=== PATIENT | female | born 1945 | race Caucasian/White ===

== ENCOUNTER 2016-12-14 14:32 | Outpatient (CLI) | payer MEDICARE, OTHER ==
--- NOTE | 2016-12-15 16:50 | Mammography Report ---
DIGITAL SCREENING MAMMOGRAM: 12/14/2016 CLINICAL INDICATION: A 71-year-old for screening. COMPARISON: 12/2011, 11/2009 TECHNIQUE: Routine CC and MLO projections were obtained of the breasts as well as bilateral laterall y exaggerated craniocaudal views. FINDINGS: Parenchymal tissue within both breasts is heterogeneously dense, which may lower the sensi tivity of mammography; however, there are no dominant masses, suspicious microcalcifications, or seco ndary signs of malignancy. In comparison to the previous studies, there are no significant changes. ASSESSMENT: NO MAMMOGRAPHIC EVIDENCE OF MALIGNANCY. NO SIGNIFICANT INTERVAL CHANGES. RECOMMENDATION: Screening mammography is recommended annually. BIRADS category 1 - negative. STANDARD QUALIFYING STATEMENTS 1. This examination was reviewed with the aid of Computed-Aided Detection (CAD). 2. A negative or benign imaging report should not delay biopsy if clinically suspicious findings are present. Consider surgical consultation if warranted. More than 5% of cancers are not identified by i maging. 3. Dense breasts may obscure an underlying neoplasm. JOB #: [id number] EXT JOB #:[id number]
== END 2016-12-14 14:33 | disposition home or self-care (01) ==
LOC: DI.S 14:32
PROVIDERS: ATTEND Physician Assistant
DX: Z12.31 Encounter for screening mammogram for malignant neoplasm of breast (principal)
CPT/HCPCS: 77067

== ENCOUNTER 2017-10-07 10:59 | Emergency (ER) | payer MEDICARE, OTHER ==
[2017-10-07 11:30] LABS: BILIRUBIN,URINE NEGATIVE (NEGATIVE); GLUCOSE, URINE (UA) NEGATIVE (NEGATIVE); KETONES,URINE (UA) NEGATIVE (NEGATIVE); LEUKOCYTE ESTERASE, URINE NEGATIVE (NEGATIVE); NITRITE,URINE NEGATIVE (NEGATIVE); OCCULT BLOOD,URINE NEGATIVE (NEGATIVE); PROTEIN,URINE NEGATIVE (NEGATIVE); UROBILINOGEN,URINE 0.2 (NORMAL) E.U./dL (NORMAL)
[2017-10-07 11:32] LABS: CLARITY,URINE SL. CLOUDY (CLEAR)
[2017-10-07 11:35] LABS: AMORPHOUS SEDIMENT,UR Moderate /LPF; BACTERIA,URINE Moderate /HPF (None Seen); RBC,URINE 0-5 /HPF (0-5); SQUAMOUS EPITHELIAL CELL,UR RARE Squamous (<= Few)
[2017-10-07 11:43] LABS: BASOPHILS % (AUTO) 0.6 %; EOSINOPHILS # (AUTO) 0.1 10^3/uL (0.0-0.7); EOSINOPHILS % (AUTO) 1.5 %; LYMPHOCYTES # (AUTO) 1.6 10^3/uL (1.5-3.5); LYMPHOCYTES % (AUTO) 24.7 %; MEAN CORPUSCULAR HEMOGLOBIN 29.5 pg (27.0-31.0); MEAN CORPUSCULAR HGB CONC 33.4 g/dL (32.0-36.0); MEAN CORPUSCULAR VOLUME 88.3 fL (81.0-99.0); MEAN PLATELET VOLUME 6.6 fL (7.9-10.8); MONOCYTES # (AUTO) 0.6 10^3/uL (0.0-1.0); MONOCYTES % (AUTO) 8.9 %; NEUTROPHILS # (AUTO) 4.3 10^3/uL (1.5-6.6); NEUTROPHILS % (AUTO) 64.3 %; PLT - PLATELET COUNT 258 10^3/uL (130-450); RED BLOOD COUNT 4.74 10^6/uL (4.20-5.40); RED CELL DISTRIBUTION WIDTH 14.1 % (12.0-15.0); WHITE BLOOD COUNT 6.6 x10^3/uL (4.8-10.8)
[2017-10-07 11:54] LABS: ALBUMIN 4.1 g/dL (3.2-5.5); ALBUMIN/GLOBULIN RATIO 1.3 (1.0-2.2); BILIRUBIN,TOTAL 0.9 mg/dL (0.2-1.0); CALCIUM 9.5 mg/dL (8.5-10.3); CREATININE 0.9 mg/dL (0.4-1.0); TOTAL PROTEIN 7.2 g/dL (6.7-8.2)
[2017-10-07] MEDS ORDERED: MORPHINE 2 MG/ML SYRINGE IVP STA (12:32)
[2017-10-07] MEDS ORDERED: ONDANSETRON 4 MG/2 ML VIAL IVP STA (12:32)
[2017-10-07] MEDS ORDERED: SODIUM CHLORIDE 0.9% 1,000 ML IV ONE (12:32)
--- NOTE | 2017-10-07 12:35 | ED Physician Documentation ---
PD HPI ABD PAIN - Stated complaint Stated Complaint: NAUSEA/ABD PX - Chief complaint Chief Complaint: Abd Pain - History obtained from History obtained from: Patient - History of Present Illness Timing - onset: Other (71-year-old woman with 5 days of left lower quadrant pain initially associated with nausea and diarrhea but now constipated x about 4 days. She has no history of abdominal surgeries. She had a colonoscopy about 8 years ago but does not remember the results and a negative occult blood test this last winter. She has had chills but no fevers measured. She was sent by her physician to evaluate for potential diverticulitis.) Review of Systems Ten Systems: 10 systems reviewed and negative Constitutional: reports: Chills. denies: Fever Cardiac: denies: Chest pain / pressure, Palpitations Respiratory: denies: Dyspnea, Cough GI: reports: Abdominal Pain, Nausea, Vomiting, Constipation, Diarrhea. denies: Bloody / black stool PD PAST MEDICAL HISTORY - Past Medical History Cardiovascular: None, Other Respiratory: None Neuro: Peripheral neuropathy Endocrine/Autoimmune: None GI: Ulcers SPARE PERSON: None : None HEENT: None Psych: Depression, Anxiety, Post traumatic stress disorder Musculoskeletal: Other Derm: None Other Past Medical History: Stent in left groin - Past Surgical History Past Surgical History: Yes Ortho: Spine surgery - Present Medications Home Medications: Ambulatory Orders Medication Instructions Recorded Confirmed Atorvastatin [Lipitor] 40 mg PO QPM 01/23/14 01/23/14 Bupropion HCl [Bupropion Xl] 300 mg PO DAILY 01/23/14 01/23/14 DULoxetine [Cymbalta] 60 mg PO DAILY 01/23/14 01/23/14 Gabapentin 300 mg PO TID 01/23/14 01/23/14 Hydroxyzine HCl 25 mg PO QPM PRN 01/23/14 01/23/14 Lactobacillus Combo No.10 1 tab PO BID 01/23/14 01/23/14 [Probiotic] Magnesium Oxide [Magnesium] 400 mg PO DAILY 01/23/14 01/23/14 Multivitamin [Multivitamins] 1 tab PO DAILY 01/23/14 01/23/14 Omeprazole [Prilosec] 20 mg PO DAILY 01/23/14 01/23/14 Ondansetron [Zofran] 4 mg PO Q4H PRN 09/16/14 09/16/14 Oxycodone HCl/Acetaminophen 1 tab PO Q4H PRN 01/23/14 01/23/14 [Percocet 10-325 mg Tablet] Amox/Clav 875/125 [Augmentin] 1 each PO Q12H #14 tablet 10/07/17 Polyethylene Glycol 3350 [Miralax] 17 gm PO DAILY PRN #1 bottle 10/07/17 - Allergies Allergies/Adverse Reactions: Allergies Allergy/AdvReac Type Severity Reaction Status Date / Time hydromorphone [Hydromorphone] Allergy Hallucinati Verified 10/07/17 11:04 ons - Social History Does the pt smoke?: No Smoking Status: Former smoker Does the pt drink ETOH?: No Does the pt have substance abuse?: No - Family History Family history: reports: Non contributory - Immunizations Immunizations are current?: Yes - POLST Patient has POLST: No PD ED PE NORMAL - Vitals Vital signs reviewed: Yes - General General: Alert and oriented X 3, No acute distress - HEENT HEENT: PERRL, EOMI - Neck Neck: Supple, no meningeal sign, No bony TTP, No bruit - Cardiac Cardiac: RRR, No murmur - Respiratory Respiratory: No respiratory distress, Clear bilaterally - Abdomen Abdomen: Other (Mild tenderness in the left lower quadrant without surgical signs, slightly hyperactive bowel tones.) - Back Back: No CVA TTP, No spinal TTP - Derm Derm: Normal color, Warm and dry - Extremities Extremities: No edema, No calf tenderness / cord - Neuro Neuro: Alert and oriented X 3, Normal speech Results - Vitals Vitals: Vital Signs - 24 hr 10/07/17 10/07/17 11:01 14:30 Temperature 35.9 C L Heart Rate 74 86 Respiratory 16 16 Rate Blood Pressure 141/89 H 156/86 H O2 Saturation 100 99 Oxygen O2 Source Room air - Labs Labs: Laboratory Tests 10/07/17 10/07/17 10/07/17 11:25 11:37 11:37 WBC 6.6 RBC 4.74 Hgb 14.0 Hct 41.8 MCV 88.3 MCH 29.5 MCHC 33.4 RDW 14.1 Plt Count 258 MPV 6.6 L Neut # 4.3 Lymph # 1.6 Webb # 0.6 Eos # 0.1 Baso # 0.0 Absolute Nucleated RBC 0.00 Nucleated RBC % 0.0 Sodium 134 L Potassium 3.9 Chloride 100 L Carbon Dioxide 25 Anion Gap 9.0 BUN 17 Creatinine 0.9 Estimated GFR (MDRD) 62 L Glucose 110 H Calcium 9.5 Total Bilirubin 0.9 AST 21 ALT 19 Alkaline Phosphatase 80 Total Protein 7.2 Albumin 4.1 Globulin 3.1 Albumin/Globulin Ratio 1.3 Lipase 25 Urine Color YELLOW Urine Clarity SL. CLOUDY Urine pH 7.0 Ur Specific [place] 1.015 Urine Protein NEGATIVE Urine Glucose (UA) NEGATIVE Urine Ketones NEGATIVE Urine Occult Blood NEGATIVE Urine Nitrite NEGATIVE Urine Bilirubin NEGATIVE Urine Urobilinogen 0.2 (NORMAL) Ur Leukocyte Esterase NEGATIVE Urine RBC 0-5 Urine WBC 0-3 Ur Squamous Epith Cells RARE Squamous Amorphous Sediment Moderate Urine Bacteria Moderate H Ur Microscopic Review INDICATED Urine Culture Comments INDICATED - Rads (name of study) CT A/P Radiology: EMP read contemporaneously (Lots of back pathology. Significant diverticulosis, no clear itis. Hiatal hernia.) PD MEDICAL DECISION MAKING - ED course ED course: History of physical is consistent with mild diverticulitis. No clear evidence of diverticulitis on CT, but suspect a mild case of that given her clinical picture. No other significant pathology except for chronic back issues and a hiatal hernia seen on CT and her labs were unremarkable. Departure - Departure Disposition: 01 Home, Self Care Clinical Impression: Diverticulitis of gastrointestinal tract Condition: Good Record reviewed to determine appropriate education?: Yes Instructions: ED Diverticulitis Prescriptions: Amox/Clav 875/125 [Augmentin] 1 each PO Q12H #14 tablet Polyethylene Glycol 3350 [Miralax] 17 gm PO DAILY PRN #1 bottle PRN Reason: Constipation Comments: Follow up with S[facility] next week. You should have a colonoscopy in the next couple of months. Return if worse. Discharge Date/Time: 10/07/17 14:31
[2017-10-07] MEDS ORDERED: IOPAMIDOL-300 100 ML VIAL ONE (12:51)
--- NOTE | 2017-10-07 14:07 | CT Preliminary Report ---
Exam: CT ABDOMEN/PELVIS W/ IMPRESSION: 1. Chronic lung disease. 2. Moderate hiatal hernia. 3. Extensive sigmoid diverticulosis without evidence of diverticulitis. [facility] SITE ID: [id number]
--- NOTE | 2017-10-07 14:10 | CT Report ---
EXAM: CT ABDOMEN AND PELVIS EXAM DATE: 10/07/2017 01:04 PM. CLINICAL HISTORY: Left lower quadrant pain. COMPARISONS: 01/23/2014. TECHNIQUE: Routine helical CT imaging was performed through the abdomen and pelvis. IV contrast: 100 mL Isovue-300. Enteric contrast: No. Reconstructions: Coronal and sagittal. In accordance with CT protocol optimization, one or more of the following dose reduction techniques w ere utilized for this exam: automated exposure control, adjustment of mA and/or KV based on patient s ize, or use of iterative reconstructive technique. FINDINGS: Lung Bases: Emphysematous changes. Increasing hiatal hernia, now moderate in caliber. Liver: Normal. No masses. Gallbladder/Bile Ducts: Unremarkable. Spleen: Normal. Pancreas: Normal. Adrenal Glands: Normal. Kidneys: Normal. No masses or hydronephrosis. Peritoneal Cavity/Bowel: Numerous diverticuli off the colon, greatest within the sigmoid. No free flu id, free air or adenopathy. No masses or acute inflammatory process. Appendix not visualized but no inflammatory changes adjacent to cecum. Pelvic Organs: Normal. The bladder and visualized pelvic organs are within normal limits. Vasculature: No aneurysms or other significant abnormality. Bones: Further interval mature compression of T10, now moderate in degree. Interval moderate to marked wedging at L1, mature, with moderate central spinal canal stenosis at T12 -L1 due to a retropulsed bone fragment. Progression of marked degenerative disk disease at L2-L3. Acquired interbody fusion at L4-L5 unchanged. Progression of marked degenerative disk disease at L5-S1. Remote left symphysis pubis fracture. Other: None. IMPRESSION: 1. Chronic lung disease. 2. Moderate hiatal hernia. 3. Extensive sigmoid diverticulosis without evidence of diverticulitis. [facility] Referring Provider Line: [phone] SITE ID: [id number]
[2017-10-07] MEDS ORDERED: IOPAMIDOL-300 100 ML VIAL IVP ONE (14:28)
[2017-10-07 14:31] VITALS: BP 156/86
== END 2017-10-07 14:31 | disposition home or self-care (01) ==
LOC: ED 10:59
DX: K57.32 Diverticulitis of large intestine without perforation or abscess without bleeding (principal); K44.9 Diaphragmatic hernia without obstruction or gangrene; G62.9 Polyneuropathy, unspecified; Z87.11 Personal history of peptic ulcer disease; Z87.891 Personal history of nicotine dependence
CPT/HCPCS: 36415; 74177; 80053; 81001; 83690; 85025; 87086; 96361; 96374; 99284; J2270; Q9967; 81003

== ENCOUNTER 2017-12-06 10:50 | Day surgery (SDC) | payer MEDICARE, OTHER ==
[2017-12-06] MEDS ORDERED: LACTATED RINGERS 1,000 ML IV ONE ×4 (11:10→12:30)
[2017-12-06] MEDS ORDERED: fentaNYL 250 MCG/5 ML VIAL IVP ONE (12:00)
[2017-12-06] MEDS ORDERED: MIDAZOLAM 2 MG/2 ML VIAL IVP ONE (12:00)
[2017-12-06 13:34] VITALS: BP 111/87
== END 2017-12-06 10:51 | disposition home or self-care (01) ==
LOC: SDS 10:50
PROVIDERS: ATTEND Surgery
PROC: 0DJD8ZZ Inspection of Lower Intestinal Tract, Via Natural or Artificial Opening Endoscopic (ICD-10-PCS; principal; 2017-12-06 12:15)
DX: Z12.11 Encounter for screening for malignant neoplasm of colon (principal); K62.1 Rectal polyp; K57.30 Diverticulosis of large intestine without perforation or abscess without bleeding; K64.8 Other hemorrhoids; Z87.891 Personal history of nicotine dependence; K21.9 Gastro-esophageal reflux disease without esophagitis
CPT/HCPCS: G0105; J3010; J7120

== ENCOUNTER 2020-11-05 08:00 | Outpatient (CLI) | payer MEDICARE, OTHER | END 2020-11-05 23:59 | disposition home or self-care (01) | LOC: LAB.S 08:00 | PROVIDERS: ATTEND Physician Assistant | DX: N39.0 Urinary tract infection, site not specified (principal) | CPT/HCPCS: 87077; 87086; 87181 ==

== ENCOUNTER 2021-08-20 14:45 | Outpatient (CLI) | payer MEDICARE, OTHER ==
[2021-08-20 20:14] LABS: BASOPHILS # (AUTO) 0.1 10^3/uL (0.0-0.1); BASOPHILS % (AUTO) 0.9 %; EOSINOPHILS # (AUTO) 0.5 10^3/uL (0.0-0.7); HCT - HEMATOCRIT 35.3 % (37.0-47.0); HGB - HEMOGLOBIN 11.6 g/dL (12.0-16.0); LYMPHOCYTES # (AUTO) 1.4 10^3/uL (1.5-3.5); LYMPHOCYTES % (AUTO) 16.1 %; MEAN CORPUSCULAR HEMOGLOBIN 27.3 pg (27.0-31.0); MEAN CORPUSCULAR HGB CONC 32.9 g/dL (32.0-36.0); MEAN CORPUSCULAR VOLUME 83.1 fL (81.0-99.0); MEAN PLATELET VOLUME 9.5 fL (7.9-10.8); MONOCYTES # (AUTO) 0.8 10^3/uL (0.0-1.0); MONOCYTES % (AUTO) 9.7 %; NEUTROPHILS # (AUTO) 5.8 10^3/uL (1.5-6.6); NEUTROPHILS % (AUTO) 66.2 %; PLT - PLATELET COUNT 404 10^3/uL (130-450); RED BLOOD COUNT 4.25 10^6/uL (4.20-5.40); RED CELL DISTRIBUTION WIDTH 14.8 % (12.0-15.0); WHITE BLOOD COUNT 8.7 x10^3/uL (4.8-10.8)
[2021-08-20 20:41] LABS: ALBUMIN 2.8 g/dL (3.2-5.5); ALBUMIN/GLOBULIN RATIO 0.7 (1.0-2.2); BILIRUBIN,TOTAL 0.8 mg/dL (0.2-1.0); CALCIUM 9.3 mg/dL (8.5-10.3); CREATININE 0.8 mg/dL (0.4-1.0); POTASSIUM 3.6 mmol/L (3.5-5.0); TOTAL PROTEIN 6.9 g/dL (6.7-8.2)
== END 2021-08-20 14:46 | disposition home or self-care (01) ==
LOC: LAB.S 14:45
DX: N20.0 Calculus of kidney (principal); C34.91 Malignant neoplasm of unspecified part of right bronchus or lung; N30.90 Cystitis, unspecified without hematuria; E55.9 Vitamin D deficiency, unspecified; N13.30 Unspecified hydronephrosis
CPT/HCPCS: 36415; 80053; 85025

== ENCOUNTER 2021-08-31 16:03 | Emergency (ER) | payer MEDICARE, OTHER ==
--- NOTE | 2021-08-31 16:23 | ED Physician Documentation ---
PD HPI ABD PAIN - Stated complaint Stated Complaint: ABD PX - Chief complaint Chief Complaint: Abd Pain - History obtained from History obtained from: Patient, Family - Additional information Additional information: 75-year-old woman presents by private vehicle with her . She has not had a good bowel movement in about 4 days and now has had 2 days of severe suprapubic pain. They have tried laxatives and enemas without output. She vomited a little bit today. No fevers. She is undergoing treatment for non- small cell lung cancer with radiation and chemotherapy. 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, Chronic bladder infection HEENT: Chronic vision loss Psych: Depression, Anxiety, Panic attacks, Post traumatic stress disorder, Claustrophobia Musculoskeletal: Osteoarthritis, Chronic back pain Derm: None - Past Surgical History Past Surgical History: Yes General: Colonoscopy, EGD Ortho: Spine surgery - Present Medications Home Medications: Ambulatory Orders Medication Instructions Recorded Confirmed Atorvastatin [Lipitor] 40 mg PO QPM 01/23/14 08/31/21 DULoxetine [Cymbalta] 60 mg PO DAILY 01/23/14 08/31/21 Lactobacillus Combo No.10 1 tab PO BID 01/23/14 08/31/21 [Probiotic] Omeprazole [Prilosec] 20 mg PO DAILY 01/23/14 08/31/21 Ondansetron [Zofran] 4 mg PO Q4H PRN 01/23/14 08/31/21 polyethylene glycoL 3350 [Miralax] 17 gm PO DAILY PRN #1 bottle 10/07/17 08/31/21 Amox/Clav 875/125 [Augmentin] 1 each PO TID #30 tablet 08/31/21 Meloxicam [Mobic] 7.5 mg PO BID PRN #10 tablet 08/31/21 polyethylene glycoL 3350 [Miralax] 17 gm PO DAILY PRN #1 bottle 08/31/21 - Allergies Allergies/Adverse Reactions: Allergies Allergy/AdvReac Type Severity Reaction Status Date / Time hydromorphone [Hydromorphone] Allergy Hallucinati Verified 08/31/21 16:10 ons - Social History Does the pt smoke?: No Smoking Status: Former smoker Does the pt drink ETOH?: No Does the pt have substance abuse?: No - Immunizations Immunizations are current?: Yes - POLST Patient has POLST: No PD ED PE NORMAL - Vitals Vital signs reviewed: Yes - General General: Alert and oriented X 3, No acute distress - Cardiac Cardiac: RRR, No murmur - Respiratory Respiratory: No respiratory distress, Clear bilaterally - Abdomen Abdomen: Other (Mild suprapubic tenderness without surgical signs, slightly hy peractive bowel tones. Soft without surgical signs.) - Rectal Rectal: Other (Rectal exam done with Tari LEWIS present and chaperoning. Empty rectal vault.) - Back Back: No CVA TTP, No spinal TTP - Derm Derm: Normal color, Warm and dry - Extremities Extremities: No edema, No calf tenderness / cord - Neuro Neuro: Alert and oriented X 3, Normal speech Results - Vitals Vitals: Vital Signs - 24 hr 08/31/21 08/31/21 16:06 18:10 Temperature 37.1 C Heart Rate 104 H 98 Respiratory 18 18 Rate Blood Pressure 100/67 138/92 H O2 Saturation 97 96 Oxygen O2 Source Room air - Labs Labs: Laboratory Tests 08/31/21 08/31/21 08/31/21 16:35 16:35 19:00 WBC 6.7 RBC 4.07 L Hgb 11.0 L Hct 33.9 L MCV 83.3 MCH 27.0 MCHC 32.4 RDW 15.5 H Plt Count 184 MPV 8.5 Neut # (Auto) 5.9 Lymph # (Auto) 0.4 L [place] # (Auto) 0.3 Eos # (Auto) 0.0 Baso # (Auto) 0.0 Absolute Nucleated RBC 0.00 Nucleated RBC % 0.0 Sodium 135 Potassium 3.7 Chloride 99 L Carbon Dioxide 24 Anion Gap 12.0 BUN 16 Creatinine 0.7 Estimated GFR (MDRD) 82 L Glucose 116 H Calcium 8.6 Total Bilirubin 0.8 AST 18 ALT 18 Alkaline Phosphatase 84 Total Protein 6.9 Albumin 3.1 L Globulin 3.8 Albumin/Globulin Ratio 0.8 L Lipase 22 Urine Color YELLOW Urine Clarity CLEAR Urine pH 7.0 Ur Specific [place] 1.010 Urine Protein NEGATIVE Urine Glucose (UA) NEGATIVE Urine Ketones TRACE Urine Occult Blood NEGATIVE Urine Nitrite NEGATIVE Urine Bilirubin NEGATIVE Urine Urobilinogen 0.2 (NORMAL) Ur Leukocyte Esterase NEGATIVE Ur Microscopic Review NOT INDICATED Urine Culture Comments NOT INDICATED PD MEDICAL DECISION MAKING - ED course ED course: This is a yogesh woman undergoing chemotherapy for cancer who presents with constipation and does not have a fecal impaction on exam. Subsequently had a CT showing: CT of the abdomen and pelvis with IV contrast demonstrates diverticulitis and fecal retention. Hiatal hernia. Pulmonary emphysema. Multilevel DDD and spinal stenosis She had some relief with Toradol here. Was given some laxatives and a first dose of Unasyn IV. Given the active chemotherapy I do believe this mandates treatment for her diverticulitis. She did not have a bowel movement in the ER but preferred to go home to have her bowel movements there. Departure - Departure Disposition: Home, Self Care Clinical Impression: Diverticulitis Constipation Qualifiers: Constipation type: slow transit constipation Qualified Code(s): K59.01 - Slow transit constipation Condition: Good Record reviewed to determine appropriate education?: Yes Instructions: ED Constipation, ED Diverticulitis Prescriptions: Amox/Clav 875/125 [Augmentin] 1 each PO TID #30 tablet polyethylene glycoL 3350 [Miralax] 17 gm PO DAILY PRN #1 bottle PRN Reason: Constipation Meloxicam [Mobic] 7.5 mg PO BID PRN #10 tablet PRN Reason: Pain Comments: We found today that you had diverticulitis which is an infection of the colon and were constipated. You did receive several doses of laxatives here. You should follow-up with your primary care physician and oncologist, next available appointment. Return if worsening. I sent your prescriptions electronically to [facility] in [place]. Prescriptions for something for pain as well as antibiotics for the diverticulitis and laxatives.
[2021-08-31 16:41] LABS: BASOPHILS % (AUTO) 0.3 %; EOSINOPHILS % (AUTO) 0.3 %; HCT - HEMATOCRIT 33.9 % (37.0-47.0); LYMPHOCYTES # (AUTO) 0.4 10^3/uL (1.5-3.5); LYMPHOCYTES % (AUTO) 6.4 %; MEAN CORPUSCULAR HGB CONC 32.4 g/dL (32.0-36.0); MEAN CORPUSCULAR VOLUME 83.3 fL (81.0-99.0); MEAN PLATELET VOLUME 8.5 fL (7.9-10.8); MONOCYTES # (AUTO) 0.3 10^3/uL (0.0-1.0); MONOCYTES % (AUTO) 4.7 %; NEUTROPHILS # (AUTO) 5.9 10^3/uL (1.5-6.6); NEUTROPHILS % (AUTO) 87.6 %; PLT - PLATELET COUNT 184 10^3/uL (130-450); RED BLOOD COUNT 4.07 10^6/uL (4.20-5.40); RED CELL DISTRIBUTION WIDTH 15.5 % (12.0-15.0); WHITE BLOOD COUNT 6.7 x10^3/uL (4.8-10.8)
[2021-08-31] MEDS: SODIUM CHLORIDE 0.9% 1,000 ML IV STA ×2 (16:42→18:09)
[2021-08-31 16:55] LABS: ALBUMIN 3.1 g/dL (3.2-5.5); ALBUMIN/GLOBULIN RATIO 0.8 (1.0-2.2); BILIRUBIN,TOTAL 0.8 mg/dL (0.2-1.0); CALCIUM 8.6 mg/dL (8.5-10.3); CREATININE 0.7 mg/dL (0.4-1.0); POTASSIUM 3.7 mmol/L (3.5-5.0); TOTAL PROTEIN 6.9 g/dL (6.7-8.2)
[2021-08-31] MEDS: KETOROLAC 15 MG/ML VIAL IVP STA ×2 (17:10→19:19)
[2021-08-31] MEDS ORDERED: IOVERSOL 320 50 ML VIAL ONE (17:20)
[2021-08-31] MEDS: IOVERSOL 320 50 ML VIAL IVP ONE (17:35)
--- NOTE | 2021-08-31 18:01 | CT Report ---
PROCEDURE: CT abdomen and pelvis with contrast INDICATIONS: Low abdominal pain CONTRAST: IV CONTRAST: Optiray 320 ml: 100 PO CONTRAST: *NO PO CONTRAST TECHNIQUE: After the administration of contrast, 5 mm thick sections acquired from the diaphragms to the sym physis. 5 mm thick coronal and sagittal reformats were acquired. For radiation dose reduction, the following was used: automated exposure control, adjustment of mA and/or kV according to patient size . COMPARISON: 01/23/2014 FINDINGS: Image quality: Excellent. ABDOMEN: Lung bases: Heart size is normal. Moderate hiatal hernia. Advanced pulmonary emphysema present. Solid organs: Liver and spleen are normal in size and enhancement. Gallbladder Biliary system is non dilated. Pancreas enhances normally. No adrenal nodules. Kidneys demonstrate normal size an d enhancement, without hydronephrosis. Peritoneum and bowel: Bowel loops demonstrate normal wall thickness and caliber. No free fluid or a ir. Multiple diverticula arise from the sigmoid colon. Mild inflammatory changes noted in the mid si gmoid with upstream fecal retention. No abscess or free air. Nodes and vessels: No retroperitoneal or mesenteric adenopathy by size criteria. Aorta and inferior vena cava are normal in size. Atherosclerotic calcification of the abdominal aorta without evidence of aneurysm. Kissing bilateral iliac stent graft noted. Miscellaneous: No ventral hernias. PELVIS: Genitourinary: Bladder wall thickness is normal. Miscellaneous: No inguinal hernias or adenopathy. Bones: No suspicious bony lesions. No vertebral body compression fractures. Degenerative changes n oted involving the pubis symphysis with old healed left-sided pubic rami fractures. Multilevel degene rative disc disease and arthropathy results in severe central stenosis at L3-4. L4-5 interbody fusion noted without instrumentation IMPRESSION: 1. Uncomplicated acute sigmoid diverticulitis without evidence of abscess or free air. Upstream fecal retention noted without cassia obstruction. 2. Moderate hiatal hernia. 3. Advanced pulmonary emphysema 4. Multilevel degenerative disc disease and arthropathy with severe L3-4 central stenosis. T10 and L1 compression fractures, stable from the prior Reviewed by: Evan Silver MD on 08/31/2021 5:00 PM AKCARLOS Approved by: Evan Silver MD on 08/31/2021 5:00 PM AKDT Station ID: [id number]
[2021-08-31] MEDS: bisacodyL 5 MG TABLET PO STA (18:09)
[2021-08-31] MEDS: MAGNESIUM CITRATE 296 ML BOTTLE PO STA (18:09)
[2021-08-31] MEDS: AMPICILLIN/SULBACTAM 3 GM in SODIUM CHLORIDE 0.9% MINIBAG 100 ML IV STA (18:38)
[2021-08-31 19:12] LABS: BILIRUBIN,URINE NEGATIVE (NEGATIVE); GLUCOSE, URINE (UA) NEGATIVE (NEGATIVE); KETONES,URINE (UA) TRACE mg/dL (NEGATIVE); LEUKOCYTE ESTERASE, URINE NEGATIVE (NEGATIVE); NITRITE,URINE NEGATIVE (NEGATIVE); OCCULT BLOOD,URINE NEGATIVE (NEGATIVE); PROTEIN,URINE NEGATIVE (NEGATIVE); UROBILINOGEN,URINE 0.2 (NORMAL) E.U./dL (NORMAL)
[2021-08-31 19:15] LABS: CLARITY,URINE CLEAR (CLEAR)
[2021-08-31] MEDS: ACETAMINOPHEN 500 MG TABLET PO STA (19:18)
[2021-08-31] MEDS: LACTULOSE 10 GM /15 ML UDC PO STA (19:19)
[2021-08-31 19:34] VITALS: BP 130/82
== END 2021-08-31 19:33 | disposition home or self-care (01) ==
LOC: ED 16:03
DX: K57.32 Diverticulitis of large intestine without perforation or abscess without bleeding (principal); K59.01 Slow transit constipation; Z87.891 Personal history of nicotine dependence
CPT/HCPCS: 36415; 74177; 80053; 81003; 83690; 85025; 96361; 96365; 96375; 99284; A9270; 81001; 87086

== ENCOUNTER 2021-09-01 09:18 | Emergency (ER) | payer MEDICARE, OTHER ==
--- NOTE | 2021-09-01 10:17 | ED Physician Documentation ---
PD HPI ABD PAIN - Stated complaint Stated Complaint: CONSTIPATED - Chief complaint Chief Complaint: Abd Pain - History obtained from History obtained from: Patient, Family - History of Present Illness Timing - onset: How many days ago (5) Timing - duration: Days (5) Timing - details: Gradual onset, Still present Quality: Cramping, Sharp, Fullness/distended, Pain Location: Suprapubic Radiation: Lower back Improved by: Laying still Worsened by: Moving, Position, Palpation Associated symptoms: Nausea, Vomiting, Constipation Similar symptoms before: Diagnosis (constipation) Recently seen: Emergency Dept - Additional information Additional information: 75-year-old female undergoing chemotherapy and radiation for lung cancer has developed constipation and abdominal pain beginning about 5 days ago. She has had worsening of her abdominal pain over the last 3 days and was seen in the emerge department yesterday evaluated by Dr. Yun with CT scan showing not only significant constipation but diverticulitis as well. The patient preferred to go home to attempt to have a bowel movement and has not had a bowel movement since. She has had doses of magnesium citrate, Dulcolax and MiraLAX as well as an enema given yesterday. She had no relief with the enema yesterday. 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, Chronic bladder infection HEENT: Chronic vision loss Psych: Depression, Anxiety, Panic attacks, Post traumatic stress disorder, Claustrophobia Musculoskeletal: Osteoarthritis, Chronic back pain Derm: None - Past Surgical History Past Surgical History: Yes General: Colonoscopy, EGD Ortho: Spine surgery - Present Medications Home Medications: Ambulatory Orders Medication Instructions Recorded Confirmed Atorvastatin [Lipitor] 40 mg PO QPM 01/23/14 08/31/21 DULoxetine [Cymbalta] 60 mg PO DAILY 01/23/14 08/31/21 Lactobacillus Combo No.10 1 tab PO BID 01/23/14 08/31/21 [Probiotic] Omeprazole [Prilosec] 20 mg PO DAILY 01/23/14 08/31/21 Ondansetron [Zofran] 4 mg PO Q4H PRN 01/23/14 08/31/21 polyethylene glycoL 3350 [Miralax] 17 gm PO DAILY PRN #1 bottle 10/07/17 08/31/21 Amox/Clav 875/125 [Augmentin] 1 each PO TID #30 tablet 08/31/21 Meloxicam [Mobic] 7.5 mg PO BID PRN #10 tablet 08/31/21 polyethylene glycoL 3350 [Miralax] 17 gm PO DAILY PRN #1 bottle 08/31/21 Lactulose 15 - 30 ml PO Q6HR PRN #200 ml 09/01/21 - Allergies Allergies/Adverse Reactions: Allergies Allergy/AdvReac Type Severity Reaction Status Date / Time hydromorphone [Hydromorphone] Allergy Hallucinati Verified 09/01/21 09:26 ons - Social History Does the pt smoke?: No Smoking Status: Former smoker Does the pt drink ETOH?: No Does the pt have substance abuse?: No - Immunizations Immunizations are current?: Yes - POLST Patient has POLST: No PD ED PE NORMAL - Vitals Vital signs reviewed: Yes - General General: Alert and oriented X 3, No acute distress, Well developed/nourished, Other (pleasant 75 y/o female laying on her side still. ) - HEENT HEENT: Atraumatic, PERRL, EOMI - Neck Neck: Supple, no meningeal sign, No bony TTP - Cardiac Cardiac: RRR, Other (2/6 holosystolic murmer at LSB) - Respiratory Respiratory: No respiratory distress, Other (diminished breath sounds. 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, No motor deficit, No sensory deficit, Normal speech Eye Opening: Spontaneous Motor: Obeys Commands Verbal: Oriented GCS Score: 15 - Psych Psych: Normal mood, Normal affect Results - Vitals Vitals: Vital Signs - 24 hr 09/01/21 09/01/21 09/01/21 09:20 10:22 12:00 Temperature 36.5 C 36.5 C Heart Rate 110 H 126 H 90 Respiratory 18 16 16 Rate Blood Pressure 96/75 137/90 H 130/88 H O2 Saturation 99 96 98 09/01/21 09/01/21 14:00 15:40 Temperature 36.5 C 36.5 C Heart Rate 88 86 Respiratory 16 16 Rate Blood Pressure 128/86 H 126/84 H O2 Saturation 98 98 Oxygen O2 Source Room air PD MEDICAL DECISION MAKING - ED course Complexity details: considered differential, d/w patient, d/w family ED course: 75-year-old female with a history of constipation for 5 days has not had relief with an enema given yesterday or magnesium citrate or MiraLAX or Dulcolax. I reviewed the patient's CT scan from yesterday and there is a significant stool load throughout. She does not have low lying stool of any significant amount and we have placed a higher enema. The patient request medication for pain she is given some Toradol we will continue to work on her constipation until she has significant relief. With a higher enema the patient is able to pass some "bricks "and tries for more without success. She is frustrated and wants to go home. I have discussed an alternative plan for her to use lactulose and she wants to try this. I have indicated to the patient that we are here to help 24 hours per day. Departure - Departure Disposition: 01 Home, Self Care Clinical Impression: Constipation Qualifiers: Constipation type: unspecified constipation type Qualified Code(s): K59.00 - Constipation, unspecified Condition: Stable Instructions: ED Constipation Follow-Up: [facility] ([facility]) NEUROLOGY NURSE [Primary Care Provider] - Prescriptions: Lactulose 15 - 30 ml PO Q6HR PRN #200 ml PRN Reason: constipation Comments: Jacquelin, today it looks like your constipation is not completely resolved. We would like you to try some lactulose and this has been e-scribed to [facility] in [place]. This medication can be helpful for constipation and you may need to "push the dose". If you do not have relief with 15ml take 30ml. If you do not have relief or have worsening we are here all of the time and we will continue to try to help. Discharge Date/Time: 09/01/21 15:40
[2021-09-01] MEDS: SODIUM CHLORIDE 0.9% 1,000 ML IV STA (11:05)
[2021-09-01] MEDS: KETOROLAC 30 MG/ML VIAL IVP STA (11:37)
[2021-09-01 15:41] VITALS: BP 126/84
== END 2021-09-01 15:40 | disposition home or self-care (01) ==
LOC: ED 09:18
DX: K59.00 Constipation, unspecified (principal); Z87.891 Personal history of nicotine dependence
CPT/HCPCS: 36415; 96374; 96375; 99284